=== PATIENT | female | born 1955 | race Hispanic/Latino ===

== ENCOUNTER 2022-01-19 10:11 | Emergency (ER) | payer MEDICARE, OTHER ==
[~2022-01-19] VITALS: Ht 172.7 cm; Wt 70.3 kg
[~2022-01-19 10:11] MED LIST: ATOR10TA69 PO; CLON0.2T PO; DOCU240C90 PO; FERR325T22 PO; METO-409 PO; MYCO500T5 PO; TACR1CAP10 PO; TACR1CAP18 PO; [UNRECOGNIZED DRUG - CODE] PO
[2022-01-19 10:32] VITALS: BP 164/66
[2022-01-19 11:22] LABS: APPEARANCE,URINE CLEAR (CLEAR); BILIRUBIN,URINE NEGATIVE (NEGATIVE); COLOR,URINE YELLOW (YELLOW); GLUCOSE, URINE (UA) NEGATIVE (NEGATIVE); KETONES,URINE NEGATIVE (NEGATIVE); LEUKOCYTE ESTERASE ,URINE TRACE (NEGATIVE); NITRATE,URINE NEGATIVE (NEGATIVE); OCCULT BLOOD,URINE TRACE-INTACT (NEGATIVE); PROTEIN,URINE TRACE mg/dL (NEGATIVE); UROBILINOGEN,URINE 0.2 mg/dL (0.2-1.0)
[2022-01-19 11:32] LABS: BACTERIA,URINE Rare /HPF (None Seen); RBC,URINE 0-1 /HPF (0-1); SQUAMOUS EPITHELIAL CELL,UR Rare /HPF (0-2)
[2022-01-19 11:36] LABS: ALBUMIN 3.1 g/dL (3.5-5.0); CREATININE 1.4 mg/dL (0.5-1.5); POTASSIUM 4.3 mmol/L (3.5-5.1); TOTAL PROTEIN, SERUM 6.7 g/dL (6.0-8.3)
[2022-01-19 12:07] LABS: HEMATOCRIT 24.1 % (36-48); MEAN CORPUSCULAR HEMOGLOBIN 30.3 pg (27.0-33.0); MEAN CORPUSCULAR HGB CONC 35.7 g/dL (32.0-36.0); MEAN CORPUSCULAR VOLUME 84.9 fL (79-99); PLATELET COUNT (AUTO) 253 K/uL (130-400); RED BLOOD CELL COUNT(AUTO) 2.84 MIL/uL (4.00-5.50); RED CELL DISTRIBUTION WIDTH 12.1 % (11.0-15.5); WHITE BLOOD COUNT (AUTO) 7.7 K/uL (4.8-10.8)
[2022-01-19 12:11] LABS: LYMPHOCYTES % (MANUAL) 8 % (22-44); MAN.DIFF COMMENT-IMPRESSION MANUAL DIFFERENTIAL; MONOCYTES % (MANUAL) 8 % (2-9); PLATELET MORPHOLOGY COMMENT ADEQUATE; SEGMENTED NEUTROPHILS % 84 % (40-70)
[2022-01-19] MEDS ORDERED: DOCU-116 PO (12:50)
[2022-01-20] MEDS ORDERED: LISI10TA24 PO (12:52)
[2022-01-20] MEDS ORDERED: CLON0.1T PO (12:53)
[2022-01-20] MEDS ORDERED: MYCO500T5 PO (12:54)
== END 2022-01-19 12:49 | disposition left against medical advice (07) ==
LOC: EDH 10:11
DX: E87.1 Hypo-osmolality and hyponatremia (principal); Z79.899 Other long term (current) drug therapy; Z98.890 Other specified postprocedural states
CPT/HCPCS: 36415; 74018; 80053; 81001; 85025

== ENCOUNTER 2022-01-20 09:19 | Inpatient (IN) | payer MEDICARE ==
[~2022-01-20] VITALS: Ht 172.7 cm; Wt 68.4 kg
[~2022-01-20 09:19] MED LIST changes: +DOCU-116 PO
[2022-01-20 10:08] LABS: BASOPHILS % (AUTO) 0.1 % (0.0-5.0); HEMATOCRIT 26.9 % (36-48); LYMPHOCYTES % (AUTO) 6.9 % (21.0-51.0); MEAN CORPUSCULAR HEMOGLOBIN 29.9 pg (27.0-33.0); MEAN CORPUSCULAR HGB CONC 34.9 g/dL (32.0-36.0); MEAN CORPUSCULAR VOLUME 85.7 fL (79-99); MONOCYTES % (AUTO) 6.5 % (3.0-13.0); NEUTROPHILS % (AUTO) 85.5 % (40.0-77.0); PLATELET COUNT (AUTO) 266 K/uL (130-400); RED BLOOD CELL COUNT(AUTO) 3.14 MIL/uL (4.00-5.50); RED CELL DISTRIBUTION WIDTH 12.1 % (11.0-15.5); WHITE BLOOD COUNT (AUTO) 9.5 K/uL (4.8-10.8)
[2022-01-20 10:25] LABS: ALBUMIN 3.3 g/dL (3.5-5.0); CREATININE 1.7 mg/dL (0.5-1.5); MAGNESIUM 1.4 mg/dL (1.80-2.40); POTASSIUM 4.1 mmol/L (3.5-5.1); TOTAL PROTEIN, SERUM 7.1 g/dL (6.0-8.3)
[2022-01-20 11:20] LABS: APPEARANCE,URINE CLEAR (CLEAR); BILIRUBIN,URINE NEGATIVE (NEGATIVE); COLOR,URINE YELLOW (YELLOW); GLUCOSE, URINE (UA) NEGATIVE (NEGATIVE); KETONES,URINE NEGATIVE (NEGATIVE); LEUKOCYTE ESTERASE ,URINE TRACE (NEGATIVE); NITRATE,URINE NEGATIVE (NEGATIVE); OCCULT BLOOD,URINE TRACE-INTACT (NEGATIVE); PH,URINE 5.5 (5.0-8.0); PROTEIN,URINE NEGATIVE (NEGATIVE); UROBILINOGEN,URINE 0.2 mg/dL (0.2-1.0)
[2022-01-20 11:26] LABS: RBC,URINE 0-1 /HPF (0-1)
[2022-01-20 11:27] LABS: BACTERIA,URINE Rare /HPF (None Seen); SQUAMOUS EPITHELIAL CELL,UR Rare /HPF (0-2)
[2022-01-20] MEDS ORDERED: MAGNESIUM 4GM PREMIX 100ML 100 ML IV PRN (12:00)
[2022-01-20] MEDS ORDERED: LISI10TA24 PO (12:52)
[2022-01-20] MEDS ORDERED: CLON0.1T PO (12:53)
[2022-01-20] MEDS ORDERED: MYCO500T5 PO (12:54)
[2022-01-20] MEDS ORDERED: ONDANSETRON ODT 4MG TAB SL SCH (13:00)
[2022-01-20] MEDS ORDERED: ACETAMINOPHEN 325 MG TAB PO PRN (13:00)
[2022-01-20] MEDS ORDERED: ONDANSETRON ODT 4MG TAB SL PRN (13:30)
[2022-01-20] MEDS: 0.9%NACL 1000ML 1,000 ML IV SCH (14:23)
[2022-01-20] MEDS ORDERED: BENZOCAINE/MENTH/CETYLPYRD CL 1 EACH LOZENGE MM PRN (15:30)
[2022-01-20] MEDS ORDERED: GUAIFENESIN-DM 200/20 MG 10 ML PO PRN (15:30)
[2022-01-20] MEDS: HEPARIN 5,000 UNIT VIAL SQ SCH (15:34)
[2022-01-20 20:00] VITALS: BP 151/75
[2022-01-21] VITALS (7 sets, daily range): BP systolic 138–163; BP diastolic 64–75
[2022-01-21] MEDS: HEPARIN 5,000 UNIT VIAL SQ SCH ×2 (00:19→13:09)
[2022-01-21] MEDS: 0.9%NACL 1000ML 1,000 ML IV SCH ×2 (04:13→20:26)
[2022-01-21] MEDS ORDERED: CETI10CA5 PO (04:38)
[2022-01-21] MEDS: ACETAMINOPHEN 325 MG TAB PO PRN ×3 (05:27→20:16)
[2022-01-21 05:29] LABS: BASOPHILS % (AUTO) 0.3 % (0.0-5.0); EOSINOPHILS % (AUTO) 0.4 % (0.0-8.0); HEMATOCRIT 23.8 % (36-48); LYMPHOCYTES % (AUTO) 11.4 % (21.0-51.0); MEAN CORPUSCULAR HEMOGLOBIN 29.7 pg (27.0-33.0); MEAN CORPUSCULAR HGB CONC 34.5 g/dL (32.0-36.0); MEAN CORPUSCULAR VOLUME 86.2 fL (79-99); MONOCYTES % (AUTO) 7.9 % (3.0-13.0); NEUTROPHILS % (AUTO) 79.2 % (40.0-77.0); PLATELET COUNT (AUTO) 238 K/uL (130-400); RED BLOOD CELL COUNT(AUTO) 2.76 MIL/uL (4.00-5.50); RED CELL DISTRIBUTION WIDTH 12.2 % (11.0-15.5); WHITE BLOOD COUNT (AUTO) 7.5 K/uL (4.8-10.8)
[2022-01-21 05:45] LABS: ALBUMIN 2.8 g/dL (3.5-5.0); CREATININE 1.4 mg/dL (0.5-1.5); POTASSIUM 4.4 mmol/L (3.5-5.1); TOTAL PROTEIN, SERUM 6.1 g/dL (6.0-8.3)
[2022-01-21] MEDS: METOPROLOL SUCCINATE 50 MG TAB.SR.24H PO SCH (09:59)
[2022-01-21] MEDS: MYCOPHENOLATE MOFETIL 250 MG CAPSULE PO SCH ×2 (10:27→20:16)
[2022-01-21] MEDS: CETIRIZINE HCL 5 MG TABLET PO SCH (10:27)
[2022-01-21] MEDS: DOCUSATE SODIUM 100 MG CAP PO SCH ×2 (13:10→20:25)
[2022-01-21] MEDS: LINEZOLID 600 MG/ISO-OSM 300 ML IV SCH (14:28)
[2022-01-21] MEDS ORDERED: TACROLIMUS 1 MG CAPSULE PO SCH (17:00)
[2022-01-21] MEDS: CLONIDINE HCL 0.1 MG TABLET PO SCH (20:17)
[2022-01-21] MEDS ORDERED: ATORVASTATIN 10 MG TABLET PO SCH (21:00)
[2022-01-22] MEDS: HEPARIN 5,000 UNIT VIAL SQ SCH ×2 (01:17→12:13)
[2022-01-22] MEDS: LINEZOLID 600 MG/ISO-OSM 300 ML IV SCH ×2 (02:01→13:45)
[2022-01-22 04:32] VITALS: BP 154/62
[2022-01-22] MEDS: ACETAMINOPHEN 325 MG TAB PO PRN (06:49)
[2022-01-22] MEDS: CETIRIZINE HCL 5 MG TABLET PO SCH (06:50)
[2022-01-22 08:55] VITALS: BP 120/58
[2022-01-22] MEDS ORDERED: LISINOPRIL 10 MG TABLET PO SCH (09:00)
[2022-01-22 09:26] VITALS: BP 120/58
[2022-01-22] MEDS: CLONIDINE HCL 0.1 MG TABLET PO SCH (09:26)
[2022-01-22] MEDS: METOPROLOL SUCCINATE 50 MG TAB.SR.24H PO SCH (09:27)
[2022-01-22] MEDS: MYCOPHENOLATE MOFETIL 250 MG CAPSULE PO SCH (09:28)
[2022-01-22] MEDS: DOCUSATE SODIUM 100 MG CAP PO SCH ×2 (09:28→13:43)
[2022-01-22 14:21] LABS: CREATININE 1.5 mg/dL (0.5-1.5); POTASSIUM 4.1 mmol/L (3.5-5.1)
== END 2022-01-22 17:45 | disposition home or self-care (01) | DRG 699 ==
LOC: EDH 09:19 → EDHIP 12:34 → 3CH 17:00
PROVIDERS: ADMIT Internal Medicine Infectious Disease; ATTEND Internal Medicine Infectious Disease
DX: T86.19 Other complication of kidney transplant (principal); E87.1 Hypo-osmolality and hyponatremia; N39.0 Urinary tract infection, site not specified; N17.9 Acute kidney failure, unspecified; I12.0 Hypertensive chronic kidney disease with stage 5 chronic kidney disease or end stage renal disease; E83.42 Hypomagnesemia; D64.9 Anemia, unspecified; E78.5 Hyperlipidemia, unspecified; R29.6 Repeated falls; Y83.0 Surgical operation with transplant of whole organ as the cause of abnormal reaction of the patient, or of later complication, without mention of misadventure at the time of the procedure; Z53.29 Procedure and treatment not carried out because of patient's decision for other reasons; Z91.19 Patient's noncompliance with other medical treatment and regimen
CPT/HCPCS: 36415; 74018; 80048; 80053; 81001; 83735; 85025; 87077; 87088; 87186; G0378; J1644; J2020; J7030; J7507; J7517